=== PATIENT | female | born 1995 | race Caucasian/White ===

== ENCOUNTER → 2018-04-30 | Outpatient (REF) | payer OTHER ==
[2018-04-30 12:08] LABS: BASO % 0.7 % (0.0-1.0); EOS # 0.1 10^3/uL (0.0-0.50); HEMATOCRIT 41.5 % (36.0-47.0); HEMOGLOBIN 13.9 g/dl (12.0-15.5); IMMATURE GRANULOCYTE % 0.2 % (0-3.0); LYMPH # 1.6 10^3/uL (1.5-6.5); LYMPH % 28.1 % (24.0-44.0); MEAN CORPUSCULAR HGB CONC 33.5 g/dl (32.0-36.5); MEAN CORPUSCULAR VOLUME 98.6 fl (80.0-96.0); MONO # 0.5 10^3/uL (0.0-0.8); MONO % 7.9 % (0.0-5.0); NEUTROPHILS # 3.6 10^3/uL (1.8-7.7); NEUTROPHILS % 62.1 % (36.0-66.0); PLATELET COUNT, AUTOMATED 405 10^3/uL (150-450); RED BLOOD COUNT 4.21 10^6/uL (4.00-5.40); RED CELL DISTRIBUTION WIDTH 12.6 % (11.5-14.5); WHITE BLOOD COUNT 5.8 10^3/uL (4.0-10.0)
[2018-04-30 13:04] LABS: ALBUMIN/GLOBULIN RATIO 1.29 (1.00-1.93); ALKALINE PHOSPHATASE 66 U/L (45-117); ALT/SGPT 19 U/L (12-78); ANION GAP 8 MEQ/L (8-16); AST/SGOT 9 U/L (7-37); BILIRUBIN,TOTAL 0.5 MG/DL (0.2-1.0); BLOOD UREA NITROGEN 9 MG/DL (7-18); CALCIUM LEVEL 8.8 MG/DL (8.5-10.1); CARBON DIOXIDE LEVEL 26 MEQ/L (21-32); CHLORIDE LEVEL 110 MEQ/L (98-107); CHOLESTEROL LEVEL 169 MG/DL (<200); CHOLESTEROL RISK RATIO 2.522 (<5); CREATININE FOR GFR 0.68 MG/DL (0.55-1.30); FREE T4 0.88 NG/DL (0.76-1.46); GLOMERULAR FILTRATION RATE > 60.0 (>60); GLUCOSE, FASTING 82 MG/DL (70-100); HDL CHOLESTEROL 67 MG/DL (>40); LDL CHOLESTEROL 89.8 MG/DL (<100); NON-HDL-C 102 MG/DL; POTASSIUM SERUM 4.4 MEQ/L (3.5-5.1); SODIUM LEVEL 144 MEQ/L (136-145); TOTAL PROTEIN 7.1 GM/DL (6.4-8.2); TRIGLYCERIDES LEVEL 61 MG/DL (<150)
== END ==
LOC: M SFHCPLAZ 09:01
DX: K21.9 Gastro-esophageal reflux disease without esophagitis (principal); E66.9 Obesity, unspecified

== ENCOUNTER → 2019-04-15 | Outpatient (CLI) | payer OTHER ==
--- NOTE | 2019-04-15 08:55 | REP ---
Left foot four views : There is no fracture or dislocation. Mineralization and joint spaces are normal. There are no calcifications or foreign bodies. Impression: Negative left foot. Right foot four views : There is no fracture or dislocation. Mineralization and joint spaces are normal. There are no calcifications or foreign bodies. Impression: Negative right foot . Electronically Signed by Chava Gray MD 04/15/2019 08:48 A
== END ==
LOC: M SMT 07:53
PROVIDERS: ATTEND Physician Assistant Medical
DX: M79.672 Pain in left foot (principal); M79.671 Pain in right foot

== ENCOUNTER → 2019-08-24 | Outpatient (REF) | payer OTHER ==
[2019-08-24 10:05] LABS: BASO % 0.7 % (0.0-1.0); EOS # 0.1 10^3/uL (0.0-0.5); EOS % 2.4 % (0.0-3.0); HEMATOCRIT 39.7 % (36.0-47.0); HEMOGLOBIN 13.1 g/dl (12.0-15.5); LYMPH % 34.8 % (24.0-44.0); MEAN CORPUSCULAR HEMOGLOBIN 33.2 pg (27.0-33.0); MEAN CORPUSCULAR VOLUME 100.8 fl (80.0-96.0); MONO # 0.5 10^3/uL (0.0-0.8); MONO % 9.4 % (0.0-5.0); PLATELET COUNT, AUTOMATED 351 10^3/uL (150-450); RED BLOOD COUNT 3.94 10^6/uL (4.00-5.40); WHITE BLOOD COUNT 5.8 10^3/uL (4.0-10.0)
[2019-08-24 10:45] LABS: ALBUMIN 3.9 GM/DL (3.2-5.2); ALT/SGPT 16 U/L (12-78); BILIRUBIN,TOTAL 0.6 MG/DL (0.2-1.0); BLOOD UREA NITROGEN 11 MG/DL (7-18); CALCIUM LEVEL 8.5 MG/DL (8.5-10.1); CARBON DIOXIDE LEVEL 26 MEQ/L (21-32); CHLORIDE LEVEL 110 MEQ/L (98-107); CHOLESTEROL LEVEL 170 MG/DL (<200); CHOLESTEROL RISK RATIO 2.151 (<5); CREATININE FOR GFR 0.69 MG/DL (0.55-1.30); FREE T4 0.88 NG/DL (0.76-1.46); GLOMERULAR FILTRATION RATE > 60.0 (>60); GLUCOSE, FASTING 73 MG/DL (70-100); HDL CHOLESTEROL 79 MG/DL (>40); LDL CHOLESTEROL 82 MG/DL (<100); NON-HDL-C 91 MG/DL; POTASSIUM SERUM 4.2 MEQ/L (3.5-5.1); SODIUM LEVEL 142 MEQ/L (136-145); TOTAL PROTEIN 6.7 GM/DL (6.4-8.2); TRIGLYCERIDES LEVEL 47 MG/DL (<150)
== END ==
LOC: M SFHCPLAZ 08:19
PROVIDERS: ATTEND Physician Assistant Medical
DX: K21.9 Gastro-esophageal reflux disease without esophagitis (principal); G43.109 Migraine with aura, not intractable, without status migrainosus; E66.9 Obesity, unspecified

== ENCOUNTER → 2020-02-01 | Outpatient (REF) | payer OTHER ==
[2020-02-01 11:35] LABS: FREE T4 0.85 NG/DL (0.76-1.46); THYROID STIMULATING HORMONE 3.39 uIU/ML (0.358-3.740)
== END ==
LOC: M PLALAB 09:15
PROVIDERS: ATTEND Physician Assistant Medical
DX: E66.9 Obesity, unspecified (principal)

== ENCOUNTER → 2020-09-21 | Outpatient (CLI) | payer SELFPAY | LOC: M LABSMTC 12:20 | PROVIDERS: ATTEND Pediatrics | DX: Z20.828 Contact with and (suspected) exposure to other viral communicable diseases (principal) ==

== ENCOUNTER → 2020-10-27 | Outpatient (CLI) | payer SELFPAY | LOC: M LABSMTC 10:31 | PROVIDERS: ATTEND Pediatrics | DX: Z20.822 Contact with and (suspected) exposure to COVID-19 (principal) ==

== ENCOUNTER → 2021-02-27 | Outpatient (REF) | payer OTHER ==
[2021-02-27 14:32] LABS: CHOLESTEROL RISK RATIO 2.204 (<5); FREE T4 0.82 NG/DL (0.76-1.46); THYROID STIMULATING HORMONE 2.35 uIU/ML (0.358-3.740)
== END ==
LOC: M PLALAB 10:48
PROVIDERS: ATTEND Physician Assistant Medical
DX: Z13.220 Encounter for screening for lipoid disorders (principal)

== ENCOUNTER → 2021-03-28 | Outpatient (REF) | payer OTHER | LOC: M SFHCPLAZ 12:43 | PROVIDERS: ATTEND Physician Assistant | DX: R05 Cough (principal) ==

== ENCOUNTER → 2021-04-19 | Outpatient (CLI) | payer OTHER ==
[2021-04-22 15:11] LABS: D001-IgE D pteronyssinus <0.10 kU/L (Class 0); E001-IgE Cat Epith/Dander < 0.10 kU/L (Class 0); E005-IgE Dog Dander < 0.10 kU/L (Class 0); G002-IgE Bermuda Grass < 0.10 kU/L (Class 0); G008-IgE Kentucky Bluegrass < 0.10 kU/L (Class 0); M001-IgE Penicillium chrysogen < 0.10 kU/L (Class 0); M002 IgE Cladosporium herbaru < 0.10 kU/L (Class 0); M003 IgE Aspergillus fumigatu < 0.10 kU/L (Class 0); M006-IgE Alternaria alternata < 0.10 kU/L (Class 0); T001-IgE Maple/Box Elder < 0.10 kU/L (Class 0); T003-IgE Common Silver Birch < 0.10 kU/L (Class 0); T006-IgE Cedar, Mountain < 0.10 kU/L (Class 0); T007-IgE Oak, White < 0.10 kU/L (Class 0); T008-IgE Elm, American < 0.10 kU/L (Class 0); T015-IgE Ash, White < 0.10 kU/L (Class 0); T041-IgE Hickory, White < 0.10 kU/L (Class 0); T070-IgE White Mulberry < 0.10 kU/L (Class 0); W001-IgE Ragweed, Short < 0.10 kU/L (Class 0); W009-IgE Plantain, English < 0.10 kU/L (Class 0); W014-IgE Pigweed, Rough < 0.10 kU/L (Class 0); W018-IgE Sheep Sorrel < 0.10 kU/L (Class 0)
== END ==
LOC: M PLALAB 08:27
PROVIDERS: ATTEND Physician Assistant Medical
DX: Z91.09 Other allergy status, other than to drugs and biological substances (principal)

== ENCOUNTER 2021-07-11 12:55 | Emergency (ER) | payer OTHER ==
[~2021-07-11] VITALS: Ht 160 cm; Wt 102.1 kg
--- OUTSIDE RECORDS SUMMARY | 2021-07-11 13:00 | CCD ---
Author Author [facility] Organization [facility] Address Unknown Phone Unavailable Care Team Providers Care Family Engagement Specialist Name Role Phone BrettRivka solan Unavailable PROBLEMS Type Condition ICD9-CM Code UOU42-DL Code Onset Dates Condition S tatus W/U Status Risk SNOMED Code Notes Problem Mild intermittent asthma without complication J45. 20 Active confirmed 275400474 Problem Cervical cancer screening Z12.4 Active confirmed 807071923 Problem Environmental allergies Z91.09 Active confirmed 418890092 Problem Gastroesophageal reflux disease without esophagitis K21.9 Active confirmed 818318110 Problem Migraine with aura and without status migrainosu s, not intractable G43.109 Active confirmed 0729829 Problem Obesity, unspecified E66.9 Active confirmed 164784418 Problem Body mass index (BMI) of 35.0-35.9 in adult Z68.35 Active confirmed 212115195 ALLERGIES Allergen (clinical drug ingredient) Drug/Non Drug Allergy do cumented on EMR Reaction Allergy Type Onset Date Status seasonal Unknown Non Drug Allergy Active ENCOUNTERS from 1995 to 2021-04-12 Encounter Location Date Provider Diagnosis [address] [phone] [place] [address] Mar, Renetta Camp IMMUNIZATIONS No Information SOCIAL HISTORY Tobacco Use: Social History Observation Description Date Details (start date - stop date) Never Smoker Sex Assigned At : Social History Observation Description Sex Assigned At Unknown Education: Question Answer Notes Level of Education: College Audit Question Answer Notes Total Score: 0 Interpretation: Alcohol Education Language: Question Answer Notes Languages spoken: Kinyarwanda Jehovah'S Witness: Question Answer Notes Jehovah'S Witness No presybeterian beliefs that would impact health care. Sexual Hx: Question Answer Notes Had sex in the last 12 months (vaginal, oral, or anal)? No LMP: 11/27/2017 Have you ever had an STD? No Drug and Alcohol Question Answer Notes Total Score: 0 Interpretation: No problems reported Alcohol Screening: Question Answer Notes Did you have a drink containing alcohol in the past year? No Points 0 Interpretation Negative Tobacco Use: Question Answer Notes Are you a: never smoker REASON FOR REFERRAL No Information VITAL SIGNS No information MEDICATIONS Medication SIG (Take, Route, Frequency, Duration) Notes Start Da te End Date Status Albuterol Sulfate HFA 108 (90 Base) MCG/ACT 2 puffs as needed Inhalation every 6 hrs Active Prochlorperazine Maleate 5 MG 1 tablet Orally as needed for 90 day(s) Active Azelastine HCl 137 MCG/SPRAY 1 puff in each nostril Na mirta Twice a day for 30 day(s) Mar, Active Omeprazole 20 MG 1 capsule Orally bid for 30 Days Active Singulair 10 MG 1 tablet Orally Once a day for 30 Days Feb, Active predniSONE 20 MG 1 tablet Orally twice a day for 5 days Feb, Not-Taking Diclofenac Sodium 1 % 1 application Transdermal To feet as needed Active Symbicort 80-4.5 MCG/ACT 2 puffs Inhalation Daily Active Albuterol Sulfate (2.5 MG/3ML) 0.083% 3 ml as needed I nhalation Three times a day Active Rizatriptan Benzoate 10 MG 1 tablet as needed one time may repeat Orally 5x/month for 90 day(s) Active Loratadine 10 MG 1 tablet Orally Once a day for 30 day(s) Mar, Active PROCEDURES No Information RESULTS No Results REASON FOR VISIT PA omeprazole 20mg cap, BID MEDICAL (GENERAL) HISTORY Type Description Date Medical History Migraines Medical History Asthma Medical History Gerd Surgical History Cystoscopy c k. stone retrieval 2017 Hospitalization History k. stones 3 days 2017 Goals Section No Information Health Concerns No Information MEDICAL EQUIPMENT No Information MENTAL STATUS No Information FUNCTIONAL STATUS No Information ASSESSMENTS No Information PLAN OF TREATMENT Medication Medication Name Sig Start Date Stop Date Albuterol Sulfate HFA 108 (90 Base) MCG/ACT 2 puffs as needed Inhalation every 6 hrs Albuterol Sulfate (2.5 MG/3ML) 0.083% 3 ml as needed I nhalation Three times a day Singulair 10 MG 1 tablet Orally Once a day for 30 Days Feb, Symbicort 80-4.5 MCG/ACT 2 puffs Inhalation Daily Omeprazole 20 MG 1 capsule Orally bid for 30 Days Loratadine 10 MG 1 tablet Orally Once a day for 30 day(s) Mar Azelastine HCl 137 MCG/SPRAY 1 puff in each nostril Na mirta Twice a day for 30 day(s) Mar, Next Appt Details Provider Name:Renetta Camp, 05-15 07:30:00 AM, [address] [place] [address], , [place], [address], Insurance Providers Payer Name Payer Address Payer Phone Insured Name Patient Relati onship to Insured Coverage Start Date Coverage End Date [facility] [address] [facility] [id number] MAIRA SOLIS [id number]
--- OUTSIDE RECORDS SUMMARY | 2021-07-11 13:00 | CCD ---
Author Author [facility] Organization [facility] Address Unknown Phone Unavailable Care Team Providers Care Claims Customer Service Representative Name Role Phone Renetta Camp Unavailable PROBLEMS Type Condition ICD9-CM Code QVS75-BU Code Onset Dates Condition S tatus W/U Status Risk SNOMED Code Notes Problem Mild intermittent asthma without complication J45. 20 Active confirmed 703607806 Problem Cervical cancer screening Z12.4 Active confirmed 894730432 Problem Environmental allergies Z91.09 Active confirmed 206619378 Problem Gastroesophageal reflux disease without esophagitis K21.9 Active confirmed 613378392 Problem Migraine with aura and without status migrainosu s, not intractable G43.109 Active confirmed 4366409 Problem Obesity, unspecified E66.9 Active confirmed 390604069 Problem Body mass index (BMI) of 35.0-35.9 in adult Z68.35 Active confirmed 680887111 ALLERGIES Allergen (clinical drug ingredient) Drug/Non Drug Allergy do cumented on EMR Reaction Allergy Type Onset Date Status seasonal Unknown Non Drug Allergy Active ENCOUNTERS from 1995 to 2021-05-28 Encounter Location Date Provider Diagnosis [address] [phone] [place] [address] Apr, Renetta Conrado Environmental allergies Z91. 09 ; Mild intermittent asthma without complication J45.20 and Gastroesophageal reflux disease without esophagitis K21.9 IMMUNIZATIONS No Information SOCIAL HISTORY Tobacco Use: Social History Observation Description Date Details (start date - stop date) Never Smoker Sex Assigned At : Social History Observation Description Sex Assigned At Unknown Education: Question Answer Notes Level of Education: College Audit Question Answer Notes Total Score: 0 Interpretation: Alcohol Education Language: Question Answer Notes Languages spoken: Urdu Voodoo: Question Answer Notes Voodoo No episcopalian beliefs that would impact health care. Sexual [...] REASON FOR REFERRAL No Information VITAL SIGNS Weight 226 lbs Apr, Height 63 in Apr, BMI 40.03 kg/m2 Apr, Heart Rate 90 /min Apr, Respiratory Rate 18 /min Apr, Temperature 98.0 degrees Fahrenheit Apr, Oximetry 100 Apr, Blood pressure systolic 104 mm Hg Apr, Blood pressure diastolic 68 mm Hg Apr, MEDICATIONS Medication SIG (Take, Route, Frequency, Duration) Notes Start Da te End Date Status Rizatriptan Benzoate 10 MG 1 tablet as needed one time may repeat Orally 5x/month for 90 day(s) Active Azelastine HCl 137 MCG/SPRAY 1 puff in each nostril Na mirta Twice a day for 30 day(s) Active Omeprazole 20 MG 1 capsule Orally bid for 30 Days Active Albuterol Sulfate HFA 108 (90 Base) MCG/ACT 2 puffs as needed Inhalation every 6 hrs Active Diclofenac Sodium 1 % 1 application Transdermal To feet as needed Active Symbicort 80-4.5 MCG/ACT 2 puffs Inhalation Daily Active Singulair 10 MG 1 tablet Orally Once a day for 30 Days Active Loratadine 10 MG 1 tablet Orally Once a day for 30 day(s) Active Prochlorperazine Maleate 5 MG 1 tablet Orally as needed for 90 day(s) Active Albuterol Sulfate (2.5 MG/3ML) 0.083% 3 ml as needed I nhalation Three times a day Active PROCEDURES No Information RESULTS No Results REASON FOR VISIT 3 Weeks c SS MEDICAL (GENERAL) HISTORY Type Description Date Medical History Migraines Medical History Asthma Medical History Gerd Medical History Environmental Allergies Surgical History Cystoscopy c k. stone retrieval 2016 Hospitalization History k. stones 3 days 2017 Goals Section No Information Health Concerns No Information MEDICAL EQUIPMENT No Information MENTAL STATUS No Information FUNCTIONAL STATUS No Information ASSESSMENTS Encounter Date Diagnosis Assessment Notes Treatment Notes Treatm ent Clinical Notes Apr, Environmental allergies (ICD-10 - Z91.09) Improved c added rx Apr, Mild intermittent asthma without complication (I CD-10 - J45.20) Somewhat controlled c current rx, still using 2 allergies not as well controlled Apr, Gastroesophageal reflux dise ase without esophagitis (ICD-10 - K21.9) Will cont. ppi to improve asthma control Apr, Other 30" chart revie w, h&p, orders/plan PLAN OF TREATMENT Medication Medication Name Sig Start Date Stop Date Singulair 10 MG 1 tablet Orally Once a day for 30 Days Loratadine 10 MG 1 tablet Orally Once a day for 30 day(s) Albuterol Sulfate (2.5 MG/3ML) 0.083% 3 ml as needed I nhalation Three times a day Albuterol Sulfate HFA 108 (90 Base) MCG/ACT 2 puffs as needed Inhalation every 6 hrs Azelastine HCl 137 MCG/SPRAY 1 puff in each nostril Na mirta Twice a day for 30 day(s) Symbicort 80-4.5 MCG/ACT 2 puffs Inhalation Daily Omeprazole 20 MG 1 capsule Orally bid for 30 Days Treatment Notes Assessment Notes Clinical Notes Environmental allergies Improved c added rx Mild intermittent asthma without complication Somewhat controlled c current rx, still using 2 allergies not as well controlled Gastroesophageal reflux disease without esophagitis Will cont. ppi to improve asthma control Next Appt Details 3 Months c Reason: Provider Name:Renetta Camp, 2020-09 07:30:00 AM, [address] [facility], , [place], [address], Insurance Providers Payer Name Payer Address Payer Phone Insured Name Patient Relati onship to Insured Coverage Start Date Coverage End Date [facility] [address] [facility] [phone] MAIRA SOLIS [id number]
--- OUTSIDE RECORDS SUMMARY | 2021-07-11 13:00 | CCD ---
Author Author [facility] Organization [facility] Address Unknown Phone Unavailable Support Name Relationship Address Phone ISH Next Of Kin [address] [place] [address] [employer] Next Of Kin [address] [place] [address] DARIELA MANCILLA Next Of Kin [id number] [place] [address] Next Of Kin Unknown Unavailable ABISAI GILBERT Next Of Kin [address] [place] [address] BIGG DARIELA Next Of Kin [id number] [place] [address] Tamynick Dariela [facility] [address] [place] [address] Unavailable Re-disclosure Warning The records that you are about to access may contain information from federally-assisted alcohol or drug abuse programs. If such information is present, then the following federally mandated warning applies: This information has been disclosed to you from records protected by federal confidentiality rules (42 CFR part 2). The federal rules prohibit you from making any further disclosure of this information unless further disclosure is expressly permitted by the written consent of the person to whom it pertains or as otherwise permitted by 42 CFR part 2. A general authorization for the release of medical or other information is NOT sufficient for this purpose. The Federal rules restrict any use of the information to criminally investigate or prosecute any alcohol or drug abuse patient.The records that you are about to access may contain highly sensitive health information, the redisclosure of which is protected by Article 27-F of the [facility] Public Health law. If you continue you may have access to information: Regarding HIV / AIDS; Provided by facilities licensed or operated by the [facility] Office of Mental Health; or Provided by the [facility] Office for People With Developmental Disabilities. If such information is present, then the following [facility] mandated warning applies: This information has been disclosed to you from confidential records which are protected by state law. State law prohibits you from making any further disclosure of this information without the specific written consent of the person to whom it pertains, or as otherwise permitted by law. Any unauthorized further disclosure in violation of state law may result in a fine or mcfp sentence or both. A general authorization for the release of medical or other information is NOT sufficient authorization for further disc losure. Encounters Encounter Providers Location Date Indications Data Source(s ) Out[place] [address] [facility] [address] 05/15/2021 12:00:00 AM EDT eCW1 ([facility]) Unknown [address] [facility] [place] [address] 04/10/2021 12:00:00 AM EDT eCW1 ([facility]) Outpatient [address] [facility] [place] [address] 03/28/2021 12:00:00 AM EDT eCW1 ([facility]) Unknown [address] [facility] [address] 03/28/2021 12:00:00 AM EDT eCW1 ([facility]) [facility] [address] [facility] [address] 08/22/2020 12:00:00 AM EST eCW1 ([facility]) Immunizations Vaccine Date Status Description Data Source(s) COVID-19 VACCINE [employer] 01/13/2021 12:00:00 AM EDT completed [facility] Vaccine Series Complete: YESThis Data wa s Submitted to [facility] [employer]. COVID-19 VACCINE [employer] 12/23/2020 12:00:00 AM EDT completed [facility] Vaccine Series Complete: NOThis Data was Submitted to [facility] [employer]. Medications Medication Brand Name Start Date Product Form Dose Route Admi nistrative Instructions Pharmacy Instructions Status Indications Reaction Description Data Source(s) Loratadine 10 MG Oral Tablet Loratadine 10 MG 04/09/2021 12:00:00 A M EDT 1.0 {tablet} active Loratadine 10 MG eCW1 ( [facility]) Azelastine HCl 137 MCG/SPRAY Azelastine HCl 137 MCG/SPRAY 12:00:00 AM EDT 1.0 {puff_in_each_nostril} active Azelastine HCl 137 MCG/SPRAY eCW1 ([facility]) montelukast 10 MG Oral Tablet [Singulair] Singulair 10 MG Si ngulair 10 MG 03/28/2021 12:00:00 AM EDT 1.0 {tablet} active Singulair 10 MG eCW1 ([facility]) montelukast 10 MG Oral Tablet [Singulair] Singulair 10 MG Si ngulair 10 MG 03/28/2021 12:00:00 AM EDT 1.0 {tablet} active Singulair 10 MG eCW1 ([facility]) Prednisone 20 MG Oral Tablet predniSONE 20 MG predniSONE 20 MG 03/28/2021 12:00:00 AM EDT 1.0 {tablet} active pr edniSONE 20 MG eCW1 ([facility]) montelukast 10 MG Oral Tablet [Singulair] Singulair 10 MG Si ngulair 10 MG 03/28/2021 12:00:00 AM EDT 1.0 {tablet} active Singulair 10 MG eCW1 ([facility]) Prednisone 20 MG Oral Tablet predniSONE 20 MG predniSONE 20 MG 03/28/2021 12:00:00 AM EDT 1.0 {tablet} active pr edniSONE 20 MG eCW1 ([facility]) Prednisone 20 MG Oral Tablet predniSONE 20 MG predniSONE 20 MG 03/28/2021 12:00:00 AM EDT 1.0 {tablet} suspended predniSONE 20 MG eCW1 ([facility]) Insurance Providers Payer name Policy type / Coverage type Policy ID Covered democrat ID Covered democrat's relationship to lopes Policy Lopes Plan Information [facility] [id number] Child [id number] SELF PAY ONLY [id number] ANSI-Commercial [id number] ANSI-Commercial [id number] ANSI-Commercial [id number] ANSI-Commercial [id number] ANSI-Commercial [id number] ANSI-Commercial [id number] [employer] [id number] MO2 [id number] [facility] [id number] DA2 [id number] Problems, Conditions, and Diagnoses Code Display Name Description Problem Type Effective Dates Data Source(s) Z91.09 [id number] Environmental allergies Problem 03/28/2021 1 2:00:00 AM EDT eCW1 ([facility]) Surgeries/Procedures No Information Results ID Date Data Source [id number] 03/28/2021 08:03:00 AM EDT [facility] Name Value Range Interpretation Code Description Data Nia rce(s) Supporting Document(s) SARS COVID ANTIGEN NEGATIVE [facility] This lab was ordered by VENUS rodriguez nd reported by [facility]. ID Date Data Source Coronavirus 2019 Nasopharygeal (Send Out) COVID 03/28/2021 1 2:00:00 AM EDT eCW1 ([facility]) Name Value Range Interpretation Code Description Data Nia rce(s) Supporting Document(s) Coronavirus 2019 Nasophar ygeal (Send Out) COVID eCW1 ([facility]) ID Date Data Source [id number] 10/27/2020 12:00:00 AM EST [facility] Name Value Range Interpretation Code Description Data Nia rce(s) Supporting Document(s) SARS-CoV-2 (COVID-19) RNA [Presence] in Respiratory specimen by SHYAM with probe detection Not Detected [facility] This lab was ordered by [facility] and reported by [facility] ID Date Data Source [id number] 09/21/2020 12:00:00 AM EST [facility] Name Value Range Interpretation Code Description Data Nia rce(s) Supporting Document(s) SARS-CoV-2 (COVID-19) RNA [Presence] in Respiratory specimen by SHYAM with probe detection [facility] This lab was ordered by [facility] and reported by [facility] Procedure Social History Code Duration Value Status Description Data Source(s ) Smoking 05/15/2021 12:00:00 AM EDT Never Smoker completed Never S moker eCW1 ([facility]) Smoking 04/09/2021 12:00:00 AM EDT Never Smoker completed Never S moker eCW1 ([facility]) Smoking 03/28/2021 12:00:00 AM EDT Never Smoker completed Never S moker eCW1 ([facility]) Smoking 03/28/2021 12:00:00 AM EDT Never Smoker completed Never S moker eCW1 ([facility]) Vital Signs ID Date Data Source UNK Name Value Range Interpretation Code Description Data Source(s) Heart rate 90 /min 90 /min eCW1 ([facility]) Body height 63 [in_i] 63 [in_i] eCW1 (Counts include 234 beds at the [facility]) Body mass index (BMI) [Ratio] 40.03 kg/m2 40.03 kg/m2 eCW1 ([facility]) Body weight 226 [lb_av] 226 [lb_av] eCW1 ([facility]) Respiratory rate 18 /min 18 /min eCW1 ([facility]) Body temperature 98.0 [degF] 98.0 [degF] eCW1 ( [facility]) Systolic blood pressure 104 mm[Hg] 104 mm[Hg] e CW1 ([facility]) Diastolic blood pressure 68 mm[Hg] 68 mm[Hg] eCW1 ([facility]) Body weight 200 [lb_av] 200 [lb_av] eCW1 ([facility]) Heart rate 55 /min 55 /min eCW1 ([facility]) Respiratory rate 20 /min 20 /min eCW1 ([facility]) Body temperature 98.4 [degF] 98.4 [degF] eCW1 ( [facility]) Systolic blood pressure 102 mm[Hg] 102 mm[Hg] e CW1 ([facility]) Diastolic blood pressure 62 mm[Hg] 62 mm[Hg] eCW1 ([facility]) Body height 63 [in_i] 63 [in_i] eCW1 (Counts include 234 beds at the [facility]) Body mass index (BMI) [Ratio] 35.42 kg/m2 35.42 kg/m2 eCW1 ([facility]) Patient Treatment Plan of Care Planned Activity Planned Date Details Description Data Source (s) Loratadine 10 MG Oral Tablet 04/09/2021 12:00:00 AM EDT eCW1 ([facility]) Azelastine HCl 137 MCG/SPRAY 04/09/2021 12:00:00 AM EDT eCW1 ([facility]) montelukast 10 MG Oral Tablet [Singulair] 03/28/2021 12:00:00 AM ED T eCW1 ([facility]) montelukast 10 MG Oral Tablet [Singulair] 03/28/2021 12:00:00 AM ED T eCW1 ([facility]) Prednisone 20 MG Oral Tablet 03/28/2021 12:00:00 AM EDT eCW1 ([facility]) montelukast 10 MG Oral Tablet [Singulair] 03/28/2021 12:00:00 AM ED T eCW1 ([facility]) Prednisone 20 MG Oral Tablet 03/28/2021 12:00:00 AM EDT eCW1 ([facility])
[2021-07-11] MEDS ORDERED: SYMB80INH (13:06)
[2021-07-11] MEDS ORDERED: LORA-674 (13:06)
[2021-07-11] MEDS ORDERED: MONT10TA10 (13:06)
[2021-07-11] MEDS ORDERED: OMEP-218 (13:06)
[2021-07-11] MEDS ORDERED: ONDANSETRON 4MG/2ML VIAL IV ONE (16:35)
[2021-07-11] MEDS ORDERED: KETOROLAC 30 MG/ML 1ML VIAL IV ONE (16:35)
--- OUTSIDE RECORDS SUMMARY | 2021-07-11 17:04 | CCD ---
Author Author [facility] Organization [facility] Address Unknown Phone Unavailable Support Name Relationship Address Phone ISH Next Of Kin [address] [place] [address] [employer] Next Of Kin [address] [place] [address] DARIELA MANCILLA Next Of Kin [id number] [place] [address] Next Of Kin Unknown Unavailable ABISAI GILBERT Next Of Kin [address] [place] [address] BIGG DARIELA Next Of Kin [id number] [place] [address] Tamynick Dariela [facility] [address] [place] [address] Unavailable Re-disclosure Warning The records that you [...] is protected by Article 27-F of the [facility] Public Health law. If you continue you may have access to information: Regarding HIV / AIDS; Provided by facilities licensed or operated by the [facility] Office of Mental Health; or Provided by the [facility] Office for People With Developmental Disabilities. If such information is present, then the following [facility] mandated warning applies: This information has [...] law may result in a fine or detention sentence or both. A general authorization for the release of medical or other information is NOT sufficient authorization for further disc losure. Encounters Encounter Providers Location Date Indications Data Source(s ) [place] [address] [facility] [address] 05/15/2021 12:00:00 AM EDT eCW1 ([facility]ly [facility]) Unknown [address] [facility] [place] [address] 04/10/2021 12:00:00 AM EDT eCW1 (Formerly [facility]) Out[place] [address] [facility] [place] [address] 03/28/2021 12:00:00 AM EDT eCW1 ([facility]ly [facility]) Unknown [address] [facility] [address] 03/28/2021 12:00:00 AM EDT eCW1 (Formerly [facility]) [facility] [address] [facility] [address] 08/22/2020 12:00:00 AM EST eCW1 (Formerly [facility]) Immunizations Vaccine Date Status Description Data Source(s) COVID-19 VACCINE [facility] 01/13/2021 12:00:00 AM EDT completed MNSIIS Vaccine Series Complete: YESThis Data wa s Submitted to [facility] Via [employer]. COVID-19 VACCINE [facility] 12/23/2020 12:00:00 AM EDT completed [facility] Vaccine Series Complete: NOThis Data was Submitted to [facility] Via [employer]. Medications Medication Brand Name Start Date Product Form Dose Route Admi nistrative Instructions Pharmacy Instructions Status Indications Reaction Description Data Source(s) Loratadine 10 MG Oral Tablet Loratadine 10 MG 04/09/2021 12:00:00 A M EDT 1.0 {tablet} active Loratadine 10 MG eCW1 ( [facility]) Azelastine HCl 137 MCG/SPRAY Azelastine HCl 137 MCG/SPRAY 12:00:00 AM EDT 1.0 {puff_in_each_nostril} active Azelastine HCl 137 MCG/SPRAY eCW1 ([facility]) montelukast 10 MG Oral Tablet [Singulair] Singulair 10 MG Si ngulair 10 MG 03/28/2021 12:00:00 AM EDT 1.0 {tablet} active Singulair 10 MG eCW1 ([facility]) montelukast 10 MG Oral Tablet [Singulair] Singulair 10 MG Si ngulair 10 MG 03/28/2021 12:00:00 AM EDT 1.0 {tablet} active Singulair 10 MG eCW1 ([facility]) Prednisone 20 MG Oral Tablet predniSONE 20 MG predniSONE 20 MG 03/28/2021 12:00:00 AM EDT 1.0 {tablet} active pr edniSONE 20 MG eCW1 ([facility]) montelukast 10 MG Oral Tablet [Singulair] Singulair 10 MG Si ngulair 10 MG 03/28/2021 12:00:00 AM EDT 1.0 {tablet} active Singulair 10 MG eCW1 ([facility]) Prednisone 20 MG Oral Tablet predniSONE 20 MG predniSONE 20 MG 03/28/2021 12:00:00 AM EDT 1.0 {tablet} active pr edniSONE 20 MG eCW1 ([facility]) Prednisone 20 MG Oral Tablet predniSONE 20 MG predniSONE 20 MG 03/28/2021 12:00:00 AM EDT 1.0 {tablet} suspended predniSONE 20 MG eCW1 ([facility]) Insurance Providers Payer name Policy type / Coverage type Policy ID Covered republican ID Covered republican's relationship to lopes Policy Lopes Plan Information [facility] U [id number] Child [id number] SELF PAY ONLY [id number] ANSI-Commercial [id number] ANSI-Commercial [id number] ANSI-Commercial [id number] ANSI-Commercial [id number] ANSI-[id number] [id number] ANSI-Commercial [id number] [employer] [id number] MO2 [id number] [facility] [id number] DA2 [id number] Problems, Conditions, and Diagnoses Code Display Name Description Problem Type Effective Dates Data Source(s) Z91.09 [id number] Environmental allergies Problem 03/28/2021 1 2:00:00 AM EDT eCW1 ([facility]) Surgeries/Procedures No Information Results ID Date Data Source [id number] 03/28/2021 08:03:00 AM EDT [facility] Name Value Range Interpretation Code Description Data Nia rce(s) Supporting Document(s) SARS COVID ANTIGEN NEGATIVE [facility] This lab was ordered by VENUS rodriguez nd reported by [facility]. ID Date Data Source Coronavirus 2019 Nasopharygeal (Send Out) COVID 03/28/2021 1 2:00:00 AM EDT eCW1 ([facility]) Name Value Range Interpretation Code Description Data Nia rce(s) Supporting Document(s) Coronavirus 2019 Nasophar ygeal (Send Out) COVID eCW1 ([facility]) ID Date Data Source [id number] 10/27/2020 12:00:00 AM EST [facility] Name Value Range Interpretation Code Description Data Nia rce(s) Supporting Document(s) SARS-CoV-2 (COVID-19) RNA [Presence] in Respiratory specimen by SHYAM with probe detection Not Detected [facility] This lab was ordered by [facility] and reported by [facility] ID Date Data Source [id number] 09/21/2020 12:00:00 AM EST [facility] Name Value Range Interpretation Code Description Data Nia rce(s) Supporting Document(s) SARS-CoV-2 (COVID-19) RNA [Presence] in Respiratory specimen by SHYAM with probe detection [facility] This lab was ordered by [facility] and reported by [facility] Procedure Social History Code Duration Value Status Description Data Source(s ) Smoking 05/15/2021 12:00:00 AM EDT Never Smoker completed Never S moker eCW1 ([facility]) Smoking 04/09/2021 12:00:00 AM EDT Never Smoker completed Never S moker eCW1 ([facility]) Smoking 03/28/2021 12:00:00 AM EDT Never Smoker completed Never S moker eCW1 ([facility]) Smoking 03/28/2021 12:00:00 AM EDT Never Smoker completed Never S moker eCW1 ([facility]) Vital Signs ID Date Data Source UNK Name Value Range Interpretation Code Description Data Source(s) Body weight 226 [lb_av] 226 [lb_av] eCW1 ([facility]) Body height 63 [in_i] 63 [in_i] eCW1 ([facility]) Body mass index (BMI) [Ratio] 40.03 kg/m2 40.03 kg/m2 eCW1 ([facility]) Heart rate 90 /min 90 /min eCW1 ([facility]) Respiratory rate 18 /min 18 /min eCW1 ([facility]) Body temperature 98.0 [degF] 98.0 [degF] eCW1 ( [facility]) Systolic blood pressure 104 mm[Hg] 104 mm[Hg] e CW1 ([facility]) Diastolic blood pressure 68 mm[Hg] 68 mm[Hg] eCW1 ([facility]) Heart rate 55 /min 55 /min eCW1 ([facility]) Respiratory rate 20 /min 20 /min eCW1 ([facility]) Body weight 200 [lb_av] 200 [lb_av] eCW1 ([facility]) Body height 63 [in_i] 63 [in_i] eCW1 ([facility]) Body mass index (BMI) [Ratio] 35.42 kg/m2 35.42 kg/m2 eCW1 ([facility]) Body temperature 98.4 [degF] 98.4 [degF] eCW1 ( [facility]) Systolic blood pressure 102 mm[Hg] 102 mm[Hg] e CW1 ([facility]) Diastolic blood pressure 62 mm[Hg] 62 mm[Hg] eCW1 ([facility]) Patient Treatment Plan of Care Planned Activity Planned Date Details Description Data Source (s) Loratadine 10 MG Oral Tablet 04/09/2021 12:00:00 AM EDT eCW1 ([facility]) Azelastine HCl 137 MCG/SPRAY 04/09/2021 12:00:00 AM EDT eCW1 ([facility]) montelukast 10 MG Oral Tablet [Singulair] 03/28/2021 12:00:00 AM ED T eCW1 ([facility]) montelukast 10 MG Oral Tablet [Singulair] 03/28/2021 12:00:00 AM ED T eCW1 ([facility]) Prednisone 20 MG Oral Tablet 03/28/2021 12:00:00 AM EDT eCW1 ([facility]) montelukast 10 MG Oral Tablet [Singulair] 03/28/2021 12:00:00 AM ED T eCW1 ([facility]) Prednisone 20 MG Oral Tablet 03/28/2021 12:00:00 AM EDT eCW1 ([facility])
[2021-07-11 17:32] LABS: BASO % 0.1 % (0.0-1.0); HEMATOCRIT 39.5 % (36.0-47.0); HEMOGLOBIN 13.4 g/dl (12.0-15.5); LYMPH # 0.6 10^3/uL (1.5-5.0); LYMPH % 4.2 % (24.0-44.0); MEAN CORPUSCULAR HGB CONC 33.9 g/dl (32.0-36.5); MEAN CORPUSCULAR VOLUME 97.3 fl (80.0-96.0); MONO # 0.4 10^3/uL (0.0-0.8); MONO % 2.6 % (2.0-8.0); NEUTROPHILS # 13.5 10^3/uL (1.5-8.5); NEUTROPHILS % 92.5 % (36.0-66.0); PLATELET COUNT, AUTOMATED 434 10^3/uL (150-450); RED BLOOD COUNT 4.06 10^6/uL (4.00-5.40); WHITE BLOOD COUNT 14.6 10^3/uL (4.0-10.0)
[2021-07-11 17:59] LABS: ALBUMIN 4.1 GM/DL (3.2-5.2); ALT/SGPT 38 U/L (12-78); BILIRUBIN,DIRECT < 0.1 MG/DL (0.0-0.2); BILIRUBIN,TOTAL 0.4 MG/DL (0.2-1.0); LIPASE 60 U/L (73-393); TOTAL PROTEIN 7.5 GM/DL (6.4-8.2)
--- NOTE | 2021-07-11 19:17 | REPVR ---
PROCEDURE INFORMATION: Exam: CT Abdomen And Pelvis Without Contrast Exam date and time: 07/11/2021 6:11 PM Age: 25 years old Clinical indication: Abdominal pain; Localized; Left; Additional info: Flank pain TECHNIQUE: Imaging protocol: Computed tomography of the abdomen and pelvis without contrast. Radiation optimization: All CT scans at this facility use at least one of these dose optimization techniques: automated exposure control; mA and/or kV adjustment per patient size (includes targeted exams where dose is matched to clinical indication); or iterative reconstruction. COMPARISON: No relevant prior studies available. FINDINGS: Lungs: No suspicious mass or airspace process in the visualized lung bases. Liver: Noncontrast liver shows no obvious lesion. Gallbladder and bile ducts: Gallbladder is present and shows no evidence of gallstone. Pancreas: Noncontrast pancreas shows no obvious mass or adjacent fluid. Spleen: Noncontrast spleen shows no obvious focal deformity. Adrenal glands: Adrenal glands are normal in appearance. Kidneys and ureters: Right kidney demonstrates no stone or obstruction. Left kidney demonstrates perinephric stranding and mild hydronephrosis, secondary to a 2-3 mm proximal left ureter stone at the left UPJ level. Stomach and bowel: Limited evaluation without enteric or IV contrast. No evidence of small bowel obstruction. Terminal ileum has normal appearance. No evidence of acute diverticulitis. Appendix: Normal caliber appendix is identified, with no adjacent inflammation. Intraperitoneal space: No pneumoperitoneum. Vasculature: No aortic aneurysm. Lymph nodes: No enlarged lymph nodes. Urinary bladder: Urinary bladder appears normal. Reproductive: Female reproductive organs appear unremarkable. Bones/joints: Bony structures show no acute fracture or destructive process. Soft tissues: No concerning focal abnormality of the extra-abdominal and pelvic soft tissues. IMPRESSION: Mild left hydronephrosis secondary to a 2-3 mm proximal left ureter stone at the left UPJ level Electronically signed by: Fabio Sewell On 07/11/2021 19:17:20 PM
[2021-07-11] MEDS ORDERED: FLOM0.4C39 PO (19:56)
[2021-07-11] MEDS ORDERED: KETO10TAB PO (19:56)
[2021-07-11] MEDS ORDERED: ZOFR4TAB16 PO (19:58)
[2021-07-11] MEDS ORDERED: TAMSULOSIN 0.4 MG CAP PO ONE (20:00)
[2021-07-11 20:31] VITALS: BP 138/72
== END 2021-07-11 20:36 | disposition home or self-care (01) ==
LOC: M ED 12:55
DX: N13.1 Hydronephrosis with ureteral stricture, not elsewhere classified (principal); J45.909 Unspecified asthma, uncomplicated; K21.9 Gastro-esophageal reflux disease without esophagitis; Z79.899 Other long term (current) drug therapy
CPT/HCPCS: 74176; 80047; 80076; 81001; 83690; 84702; 85025; 96374; 96375; 99284; J1885; J2405

== ENCOUNTER → 2021-08-20 | Outpatient (CLI) | payer OTHER ==
[~2021-08-20] MED LIST: FLOM0.4C39 PO; KETO10TAB PO; LORA-674; MONT10TA10; OMEP-218; SYMB80INH; ZOFR4TAB16 PO
[2021-08-20 10:59] LABS: BASO % 0.5 % (0.0-1.0); EOS # 0.1 10^3/uL (0.0-0.5); EOS % 2.2 % (0.0-3.0); HEMATOCRIT 42.8 % (36.0-47.0); HEMOGLOBIN 14.1 g/dl (12.0-15.5); LYMPH % 30.5 % (24.0-44.0); MEAN CORPUSCULAR HEMOGLOBIN 32.2 pg (27.0-33.0); MEAN CORPUSCULAR HGB CONC 32.9 g/dl (32.0-36.5); MEAN CORPUSCULAR VOLUME 97.7 fl (80.0-96.0); MONO # 0.6 10^3/uL (0.0-0.8); MONO % 9.7 % (2.0-8.0); NEUTROPHILS # 3.7 10^3/uL (1.5-8.5); NEUTROPHILS % 56.8 % (36.0-66.0); PLATELET COUNT, AUTOMATED 426 10^3/uL (150-450); RED BLOOD COUNT 4.38 10^6/uL (4.00-5.40); WHITE BLOOD COUNT 6.5 10^3/uL (4.0-10.0)
[2021-08-20 11:31] LABS: ALBUMIN 3.9 GM/DL (3.2-5.2); ALT/SGPT 17 U/L (12-78); BILIRUBIN,TOTAL 0.5 MG/DL (0.2-1.0); BLOOD UREA NITROGEN 10 MG/DL (7-18); CALCIUM LEVEL 9.4 MG/DL (8.5-10.1); CARBON DIOXIDE LEVEL 29 MEQ/L (21-32); CHLORIDE LEVEL 107 MEQ/L (98-107); CREATININE FOR GFR 0.69 MG/DL (0.55-1.30); GLOMERULAR FILTRATION RATE > 60.0 (>60); GLUCOSE, FASTING 87 MG/DL (70-100); POTASSIUM SERUM 4.4 MEQ/L (3.5-5.1); SODIUM LEVEL 141 MEQ/L (136-145); TOTAL PROTEIN 6.8 GM/DL (6.4-8.2)
[2021-08-20 11:37] LABS: VITAMIN B12 LEVEL 297 PG/ML (247-911)
== END ==
LOC: M PLALAB 08:27
PROVIDERS: ATTEND Physician Assistant Medical
DX: D75.89 Other specified diseases of blood and blood-forming organs (principal); N20.0 Calculus of kidney

== ENCOUNTER → 2021-10-04 | Outpatient (CLI) | payer OTHER | LOC: M WHC 06:50 | PROVIDERS: ATTEND Physician Assistant Medical | DX: N20.0 Calculus of kidney (principal) ==

== ENCOUNTER → 2021-10-17 | Outpatient (REF) | payer OTHER ==
[~2021-10-17] MED LIST changes: -MONT10TA10; +MONT10TA97; +OMEP-173; -OMEP-218
== END ==
LOC: M SFHCWAGY 13:39
PROVIDERS: ATTEND Nurse Practitioner Women's Health
DX: Z12.4 Encounter for screening for malignant neoplasm of cervix (principal)

== ENCOUNTER → 2022-02-13 | Outpatient (CLI) | payer BC ==
[2022-02-13 10:59] LABS: BASO % 0.6 % (0.0-1.0); EOS # 0.2 10^3/uL (0.0-0.5); EOS % 2.7 % (0.0-3.0); HEMATOCRIT 40.7 % (36.0-47.0); HEMOGLOBIN 13.5 g/dl (12.0-15.5); LYMPH % 29.4 % (24.0-44.0); MEAN CORPUSCULAR HEMOGLOBIN 32.4 pg (27.0-33.0); MEAN CORPUSCULAR HGB CONC 33.2 g/dl (32.0-36.5); MEAN CORPUSCULAR VOLUME 97.6 fl (80.0-96.0); MONO # 0.8 10^3/uL (0.0-0.8); MONO % 11.1 % (2.0-8.0); NEUTROPHILS # 3.9 10^3/uL (1.5-8.5); NEUTROPHILS % 55.9 % (36.0-66.0); PLATELET COUNT, AUTOMATED 408 10^3/uL (150-450); RED BLOOD COUNT 4.17 10^6/uL (4.00-5.40); WHITE BLOOD COUNT 6.9 10^3/uL (4.0-10.0)
[2022-02-13 11:28] LABS: HEMOGLOBIN A1c 4.9 %
== END ==
LOC: M PLALAB 07:55
PROVIDERS: ATTEND Physician Assistant Medical
DX: D75.89 Other specified diseases of blood and blood-forming organs (principal); Z13.1 Encounter for screening for diabetes mellitus

== ENCOUNTER → 2022-10-16 | Outpatient (CLI) | payer OTHER ==
[2022-10-16 10:26] LABS: BASO % 0.6 % (0.0-1.0); EOS # 0.1 10^3/uL (0.0-0.5); EOS % 1.4 % (0.0-3.0); HEMATOCRIT 40.3 % (36.0-47.0); HEMOGLOBIN 13.4 g/dl (12.0-15.5); LYMPH # 1.9 10^3/uL (1.5-5.0); LYMPH % 28.5 % (24.0-44.0); MEAN CORPUSCULAR HEMOGLOBIN 32.4 pg (27.0-33.0); MEAN CORPUSCULAR HGB CONC 33.3 g/dl (32.0-36.5); MEAN CORPUSCULAR VOLUME 97.3 fl (80.0-96.0); MONO # 0.7 10^3/uL (0.0-0.8); MONO % 10.2 % (2.0-8.0); NEUTROPHILS # 3.8 10^3/uL (1.5-8.5); PLATELET COUNT, AUTOMATED 464 10^3/uL (150-450); RED BLOOD COUNT 4.14 10^6/uL (4.00-5.40); WHITE BLOOD COUNT 6.5 10^3/uL (4.0-10.0)
[2022-10-16 10:27] LABS: HEMATOCRIT 40.3 % (36.0-47.0)
[2022-10-16 10:52] LABS: HEMOGLOBIN A1c 4.5 % (4.0-6.0)
[2022-10-16 11:06] LABS: ALBUMIN 3.9 G/DL (3.2-5.2); ALKALINE PHOSPHATASE 74 U/L (46-116); ALT/SGPT 17 U/L (7.0-40); AST/SGOT 17 U/L (<34); BLOOD UREA NITROGEN 12 MG/DL (9-23); CALCIUM LEVEL 8.9 MG/DL (8.5-10.1); CARBON DIOXIDE LEVEL 24 MMOL/L (20-31); CHLORIDE LEVEL 106 MMOL/L (98-107); CHOLESTEROL LEVEL 160 MG/DL (<200); CHOLESTEROL RISK RATIO 2.95 (<5); CREATININE FOR GFR 0.67 MG/DL (0.55-1.30); GLOMERULAR FILTRATION RATE > 60.0 (>60); GLUCOSE, FASTING 85 MG/DL (60-100); HDL CHOLESTEROL 54.1 MG/DL (>40); LDL CHOLESTEROL 95.5 MG/DL (<100); NON-HDL-C 106 MG/DL; POTASSIUM SERUM 4.7 MMOL/L (3.5-5.1); SODIUM LEVEL 139 MMOL/L (136-145); TOTAL PROTEIN 6.6 G/DL (5.7-8.2); TRIGLYCERIDES LEVEL 52 MG/DL (<150); VITAMIN B12 LEVEL 574 PG/ML (211-911)
== END ==
LOC: M PLALAB 07:16
PROVIDERS: ATTEND Physician Assistant Medical
DX: E66.01 Morbid (severe) obesity due to excess calories (principal); N20.0 Calculus of kidney; D75.89 Other specified diseases of blood and blood-forming organs

== ENCOUNTER → 2023-02-07 | Outpatient (REF) | payer OTHER | LOC: M SFHCPLAZ 08:09 | PROVIDERS: ATTEND Physician Assistant Medical | DX: Z53.9 Procedure and treatment not carried out, unspecified reason (principal) ==

== ENCOUNTER → 2023-02-11 | Outpatient (CLI) | payer OTHER ==
[2023-02-11 11:11] LABS: HEMATOCRIT 37.9 % (36.0-47.0)
[2023-02-11 11:13] LABS: BASO % 0.4 % (0.0-1.0); EOS # 0.2 10^3/uL (0.0-0.5); EOS % 2.3 % (0.0-3.0); HEMATOCRIT 37.9 % (36.0-47.0); HEMOGLOBIN 12.3 g/dl (12.0-15.5); LYMPH # 2.2 10^3/uL (1.5-5.0); LYMPH % 31.9 % (24.0-44.0); MEAN CORPUSCULAR HEMOGLOBIN 31.7 pg (27.0-33.0); MEAN CORPUSCULAR HGB CONC 32.5 g/dl (32.0-36.5); MEAN CORPUSCULAR VOLUME 97.7 fl (80.0-96.0); MONO # 0.6 10^3/uL (0.0-0.8); NEUTROPHILS # 3.9 10^3/uL (1.5-8.5); NEUTROPHILS % 56.1 % (36.0-66.0); PLATELET COUNT, AUTOMATED 420 10^3/uL (150-450); RED BLOOD COUNT 3.88 10^6/uL (4.00-5.40)
== END ==
LOC: M PLALAB 07:24
PROVIDERS: ATTEND Physician Assistant Medical
DX: D75.89 Other specified diseases of blood and blood-forming organs (principal); K21.9 Gastro-esophageal reflux disease without esophagitis; N94.6 Dysmenorrhea, unspecified

== ENCOUNTER → 2023-02-19 | Outpatient (CLI) | payer OTHER | LOC: M WHC 07:18 | PROVIDERS: ATTEND Nurse Practitioner Family | DX: N94.6 Dysmenorrhea, unspecified (principal) ==

== ENCOUNTER → 2023-08-11 | Outpatient (CLI) | payer OTHER ==
[~2023-08-11] MED LIST changes: +LORA-1041; -LORA-674
== END ==
LOC: M WUC 08:52
PROVIDERS: ATTEND Student in an Organized Health Care Education/Training Program
DX: M25.571 Pain in right ankle and joints of right foot (principal)

== ENCOUNTER → 2023-09-13 | Outpatient (CLI) | payer OTHER | LOC: M RAD 12:53 | PROVIDERS: ATTEND Physician Assistant Medical | DX: S93.431A Sprain of tibiofibular ligament of right ankle, initial encounter (principal); Y93.9 Activity, unspecified; Y92.9 Unspecified place or not applicable ==

== ENCOUNTER → 2024-10-12 | Outpatient (CLI) | payer OTHER ==
[2024-10-12 11:12] LABS: FREE T4 0.86 NG/DL (0.89-1.76)
[2024-10-12 11:13] LABS: THYROID STIMULATING HORMONE 4.065 uIU/ML (0.55-4.78)
[2024-10-12 11:14] LABS: FOLLICLE STIMULATING HORMONE 4.2 mIU/ML; PROLACTIN 12.2 NG/ML
[2024-10-12 11:15] LABS: PROGESTERONE 1.77 NG/ML
== END ==
LOC: M PLALAB 07:50
PROVIDERS: ATTEND Specialist
DX: N92.6 Irregular menstruation, unspecified (principal)

== ENCOUNTER → 2025-01-25 | Outpatient (CLI) | payer OTHER ==
[~2025-01-25] MED LIST changes: -FLOM0.4C39 PO; +TAMS-18 PO
[2025-01-25 10:42] LABS: FREE T4 1.01 NG/DL (0.89-1.76); THYROID STIMULATING HORMONE 2.838 uIU/ML (0.55-4.78)
== END ==
LOC: M PLALAB 07:54
PROVIDERS: ATTEND Physician Assistant Medical
DX: E66.01 Morbid (severe) obesity due to excess calories (principal)

== ENCOUNTER → 2025-08-31 | Outpatient (CLI) | payer OTHER ==
[2025-08-31 15:22] LABS: C REACTIVE PROTEIN QUANTITATIV < 0.50 MG/DL (<1.0)
[2025-08-31 15:24] LABS: BASO # 0.0 10^3/uL (0.0-0.2); BASO % 0.6 % (0.0-1.0); EOS # 0.1 10^3/uL (0.0-0.5); EOS % 1.7 % (0.0-3.0); LYMPH # 2.2 10^3/uL (1.5-5.0); LYMPH % 31.1 % (24.0-44.0); MONO # 0.6 10^3/uL (0.0-0.8); MONO % 8.8 % (2.0-8.0); NEUTROPHILS # 4.2 10^3/uL (1.5-8.5); NEUTROPHILS % 57.7 % (36.0-66.0); PLATELET COUNT, AUTOMATED 447 10^3/uL (150-450)
[2025-08-31 15:25] LABS: ALT/SGPT 18 U/L (7.0-40); AST/SGOT 18 U/L (<34); CALCIUM LEVEL 9.0 MG/DL (8.5-10.1); CARBON DIOXIDE LEVEL 26 MMOL/L (20-31); CHLORIDE LEVEL 104 MMOL/L (98-107); CREATININE FOR GFR 0.67 MG/DL (0.55-1.30); GLOMERULAR FILTRATION RATE > 90.0 (>60); POTASSIUM SERUM 4.4 MMOL/L (3.5-5.1); SODIUM LEVEL 140 MMOL/L (136-145)
[2025-08-31 15:30] LABS: FREE T4 1.04 NG/DL (0.89-1.76)
== END ==
LOC: M PLALAB 08:47
PROVIDERS: ATTEND Physician Assistant Medical
DX: K59.00 Constipation, unspecified (principal); Z91.09 Other allergy status, other than to drugs and biological substances; Z68.42 Body mass index [BMI] 45.0-49.9, adult